=== PATIENT | male | born 1945 | race Caucasian/White ===

== ENCOUNTER 2018-08-15 18:59 | Emergency (ER) | payer OTHER ==
[~2018-08-15] VITALS: Ht 165.1 cm; Wt 57.6 kg
[2018-08-15 19:09] VITALS: Ht 165.1 cm; Wt 57.6 kg
[2018-08-15 22:02] VITALS: BP 107/72
== END 2018-08-15 22:02 | disposition home or self-care (01) ==
LOC: ED 18:59
DX: S63.296A Dislocation of distal interphalangeal joint of right little finger, initial encounter (principal); S01.81XA Laceration without foreign body of other part of head, initial encounter; E11.9 Type 2 diabetes mellitus without complications; I10 Essential (primary) hypertension; Z86.73 Personal history of transient ischemic attack (TIA), and cerebral infarction without residual deficits; W01.198A Fall on same level from slipping, tripping and stumbling with subsequent striking against other object, initial encounter; Y93.89 Activity, other specified; Y92.89 Other specified places as the place of occurrence of the external cause; Y99.8 Other external cause status
CPT/HCPCS: Q0092